=== PATIENT | female | born 1995 | race Caucasian/White ===

== ENCOUNTER 2024-12-01 10:47 | Emergency (ER) | payer MEDICAID, OTHER ==
[~2024-12-01] VITALS: Ht 165.1 cm; Wt 72.8 kg
[~2024-12-01 10:47] MED LIST: METH500T PO
[2024-12-01 11:19] LABS: URINE HCG NEGATIVE (NEG)
[2024-12-01 11:26] LABS: MEAN PLATELET VOLUME 7.6 FL (7.4-10.4); RED CELL DISTRIBUTION WIDTH 19.3 % (11.5-14.5)
[2024-12-01 11:38] LABS: PLATELET ESTIMATE NORMAL
[2024-12-01 11:40] LABS: ELLIPTOCYTES FEW; LARGE PLATELETS FEW
[2024-12-01 11:41] LABS: LEUKOCYTE ESTERASE ,URINE SMALL (Neg); NITRITES, URINE NEGATIVE (Neg); OCCULT BLOOD,URINE NEGATIVE (Neg)
[2024-12-01 11:42] LABS: UA COLLECTION TYPE CLN CATCH MIDSTREAM
[2024-12-01 11:44] LABS: CREATININE 0.55 MG/DL (0.40-0.90); TOTAL CARBON DIOXIDE 26.5 MMOL/L (24-32); eCRCL 133 ML/MIN; eGFR > 90 ML/MIN
[2024-12-01 11:53] LABS: MUCUS STRANDS FEW /LPF (Neg); SQUAMOUS EPITHELIAL CELL,UR MODERATE /LPF (FEW)
[2024-12-01 11:54] LABS: WBC CLUMPS,URINE FEW /HPF (NEGATIVE)
--- NOTE | 2024-12-01 11:54 | Physician Documentation ---
History of Present Illness General Chief Complaint: Urinary Retention Stated Complaint: KIDNEY PAIN Time Seen by MD: 11:51 OK to notify your PCP?: No Primary Medical Doctor: none Source: patient, RN notes reviewed Mode of Arrival: POV, Ambulatory Exam Limitations: no limitations History of Present Illness Initial Comments 29 year old female, with history of kidney stones once in the past, presents complaining of left flank pain for the last three weeks. Pain has mostly been intermittent but became constant over the last few days. Pain is now severe and is radiating to the left lower abdomen and wraps around the flank. She denies any vomiting. She did have a urinalysis at her regular doctor's office last week who told her she likely had a kidney stone, so she was started on Flomax; she did not have a urinary tract infection at the time. She denies any vomiting. Medication Reconciliation Allergies: Coded Allergies: adhesive tape (Verified Allergy, Intermediate, 12/01/24) Uncoded Allergies: AMOXICILLAN (Allergy, Unknown, 11/17/15) Scheduled Cephalexin*Monohydrate* (Keflex*), 2 CAP PO BID Methocarbamol (Robaxin), 1 TAB PO Q8H Scheduled PRN Hydrocodone Bit/Acetaminophen (Hydrocodon-Acetaminophn 10-325 tablet), 1 TABLET PO Q6H PRN for moderate or severe pain 4-10 ONDANSETRON ODT 4mg tablet (Ondansetron Odt), 1 TABLET PO Q6H PRN for nausea/vomiting Past Medical History Past Medical History: Kidney Stones Past Surgical History: no surgical history Smoking: Cigarettes Alcohol Use: Occasionally Drug Use: none Lives with: Family Lives In: Home Occupation: employed Review of Systems All Other Systems at this time: Reviewed and Negative ROS left flank pain as well as other positive symptoms as stated above in the HPI, otherwise all systems are reviewed and negative. Physical Exam Physical Exam Vital Signs: RN Vital Signs have been reviewed: Yes, Temperature: 97.8, Source: Oral, Heart Rate: 121, Respiratory Rate: 16, BP: 141/96, Pulse Oximetry: 98, Weight: 72.800 Pulse Oximetry Reflects: adequate oxygenation Physical Exam VITALS: Reviewed and as above. GENERAL: Alert, no apparent distress. HEENT: Normocephalic, atraumatic, PERRL, EOMI, dry mucosa RESPIRATORY: Lungs clear, normal breath sounds, no respiratory distress. CHEST: No accessory muscle use, no retractions CV: Regular rate, regular rhythm, no edema, no murmur, No: JVD GI: Slight left sided abdominal tenderness. Soft, bowels sounds present, no rebound, guarding, or rigidity BACK: No CVA tenderness, or swelling MUSCULOSKELETAL No deformities, no edema SKIN: Warm and dry, no rash NEURO: Oriented x4, No motor or sensory deficit PSYCH: Normal mood and affect, no agitation. Progress Progress Note 1350: Reevaluation: Pain is improved. comfortable with plan for discharge on a ntibiotics. Results/Orders Reviewed/noted all lab results: Yes Results/Orders Medications Received in ER Medications (Trade) Dose Ordered Sig/Rochelle Route PRN Reason Start Time Stop Time Status Last Admin Dose Admin (Toradol injection) 15 mg ONCE ONCE IV 12/01/24 12:30 12/01/24 12:31 DC 12/01/24 12:37 15 MG Ceftriaxone Sodium/Dextrose 50 ml @ 100 mls/hr ONCE ONCE IV 12/01/24 12:50 12/01/24 13:19 DC 12/01/24 13:09 100 MLS/HR Vital Signs 12/01/24 12/01/24 12/01/24 12/01/24 10:58 11:25 12:37 12:38 Temp 97.8 Pulse 121 96 Resp 22 16 20 20 B/P (MAP) 141/96 118/87 (97) Pulse Ox 98 99 12/01/24 13:46 Resp 16 Laboratory Tests Test 12/01/24 11:00 12/01/24 11:16 Urine Specimen Description Cln catch midstream Urine Color Straw Urine Clarity Slightly cloudy Urine pH 7.0 Urine Specific Superior <=1.005 Urine Protein Negative Urine Glucose (UA) Negative Urine Ketones Negative Urine Occult Blood Negative Urine Nitrite Negative Urine Bilirubin Negative Urine Urobilinogen 0.2 Urine Leukocyte Esterase Small H Urine RBC 0-2 Urine WBC 20-30 H Urine WBC Clumps Few Urine Squamous Epithelial Cells Moderate Urine Transitional Epithelial Cells Few Urine Bacteria 2+ Urine Mucus Few Urine Culture Indicated Indicated Volume Urine Centrifuged 10 ml Urine HCG, Qualitative Negative Urine Comment White Blood Count 7.6 Red Blood Count 4.30 Hemoglobin 10.4 L Hematocrit 32.2 L Mean Corpuscular Volume 74.9 L Mean Corpuscular Hemoglobin 24.1 L Mean Corpuscular Hemoglobin Concent 32.2 L Red Cell Distribution Width 19.3 H Platelet Count 348 Mean Platelet Volume 7.6 Neutrophils (%) (Auto) 62.2 Lymphocytes (%) (Auto) 22.5 Monocytes (%) (Auto) 12.1 H Eosinophils (%) (Auto) 2.1 Basophils (%) (Auto) 1.1 H Neutrophils # (Auto) 4.7 Lymphocytes # (Auto) 1.7 Monocytes # (Auto) 0.9 Eosinophils # (Auto) 0.2 Basophils # (Auto) 0.1 CBC Comment Platelet Estimate Normal Large Platelets Few Red Blood Cell Morphology Perf Hypochromasia 1+ Basophilic Stippling Anisocytosis 2+ Microcytosis 1+ Tear Drop Cells Few Elliptocytes Few Sodium Level 136 Potassium Level 3.6 Chloride Level 103 Carbon Dioxide Level 26.5 Anion Gap 7 L Blood Urea Nitrogen 3 L Creatinine 0.55 Estimated GFR/1.73 m2 > 90 BUN/Creatinine Ratio 5.5 L Glucose Level 88 Calcium Level 8.8 Total Bilirubin 0.4 Aspartate Amino Transf (AST/SGOT) 23 Alanine Aminotransferase (ALT/SGPT) 25 Alkaline Phosphatase 71 Total Protein 7.5 Albumin 3.5 Globulin 4.0 Albumin/Globulin Ratio 0.9 L Lipase 182 H Procalcitonin 0.15 Chemistry Comments Microbiology Date/Time Source Procedure Growth Status 12/01/24 11:56 Urine Clean Catch Midstream Urine Culture - Preliminary Culture received. Resulted EKG/XRAY/CT/US/VASC/MRI CT : Interpreted By: radiologist CT: abdomen/pelvis With Contrast?: No Impression Exam: CT CT ABDOMEN PELVIS History: FLANK PAIN COMPARISON: None Technique: Multidetector spiral CT of the abdomen and pelvis was performed from lung bases to pubic symphysis. Intravenous contrast was administered during this examination. Portal venous imaging was obtained. Axial, coronal and sagittal multiplanar reformats were performed by the technologist on a separate workstation. Radiation Dose : 1. Abdomen/Pelvis: CTDIvol 17.5 mGy, DLP 833 mGy*cm. Findings: Lung Bases: No acute or significant lung base finding. Normal heart size. No pleural or pericardial effusion. Liver: Indeterminate hypoattenuating lesion in the right hepatic lobe, segment 6 measures 3.6 cm. Gallbladder and Biliary Tree: Unremarkable Spleen: Unremarkable Pancreas: The pancreas is normal in appearance without focal lesions or abnormal enhancement. Adrenal Glands: Unremarkable Kidneys: Right kidney is unremarkable. Moderate left hydroureteronephrosis. Possible punctate 0.1 cm stone in the distal left ureter. Bladder: Unremarkable Bowel: The stomach is grossly normal in appearance. Moderate volume colonic stool. The appendix is not visualized; however, no secondary findings of acute appendicitis identified. Ascites: Absent Lymphadenopathy: No mesenteric, retroperitoneal or periportal lymphadenopathy. Abdominal Wall and Mesentery: Unremarkable. Vasculature: The visualized abdominal aorta is normal in size and caliber. Abdominal and pelvic vessels demonstrate normal enhancement. Pelvic Organs: Unremarkable Musculoskeletal: No aggressive focal bony lesions, acute fractures or dislocation. IMPRESSION: Moderate left hydroureteronephrosis. Possible punctate 0.1 cm stone in the distal left ureter versus phleboliths. Moderate volume colonic stool. Indeterminate hypoattenuating lesion in the right hepatic lobe segment 6 measures 3.6 cm. This could be further evaluated with nonemergent CT or MRI liver mass protocol. Reviewed by myself. Medical Decision Making Additional info obtained from: old records (Last seen in 2016 for cervical strain) Departure Time of Disposition: 13:59 Disposition: HOME / SELF CARE / HOMELESS Impression: Primary Impression: Back pain Qualified Codes: M54.9 - Dorsalgia, unspecified Additional Impression: UTI (urinary tract infection) Qualified Codes: N39.0 - Urinary tract infection, site not specified Condition: Stable Discharge Instructions: Acute Back Pain, Adult, Urinary Tract Infection, Adult, [id number] Additional Instructions: Take full course of antibiotics as prescribed. Take [place]onier as needed for pain. Take Zofran as needed for nausea. Return to the ER for worsening pain, fever, vomiting, or other concerns. Prescriptions ONDANSETRON ODT 4mg tablet (ONDANSETRON ODT) 4 Mg Tab.rapdis 1 TABLET PO Q6H PRN for nausea/vomiting, #12 TABLET Prov: MARIO KING MD 12/01/24 Cephalexin*Monohydrate* (Keflex*) 500 Mg Capsule 2 CAP PO BID, #28 CAP Prov: MARIO KING MD 12/01/24 Hydrocodone Bit/Acetaminophen (Hydrocodon-Acetaminophn 10-325 tablet) 10mg- 325mg Tablet 1 TABLET PO Q6H PRN for moderate or severe pain 4-10, #12 TABLET Prov: MARIO KING MD 12/01/24 Education Educated: Patient Educated regarding: diagnosis, treatment, need for follow up Signature Scribe Signature: Scribed for Mario King MD by Jodi Addison . 12/01/24 12:47 MARIO KING MD Dec 01, 2024 11:54 JODI GUERIN Dec 01, 2024 12:52
[2024-12-01] MEDS: ketorolac trometh 15mg/ml vial 15 MG/ML ML IV ONE (12:37)
--- NOTE | 2024-12-01 12:40 | RADIOLOGY REPORT ---
Exam: CT CT ABDOMEN PELVIS History: FLANK PAIN COMPARISON: None Technique: Multidetector spiral CT of the abdomen and pelvis was performed from lung bases to pubic s ymphysis. Intravenous contrast was administered during this examination. Portal venous imaging was o btained. Axial, coronal and sagittal multiplanar reformats were performed by the technologist on a Slated workstation. Radiation Dose : 1. Abdomen/Pelvis: CTDIvol 17.5 mGy, DLP 833 mGy*cm. Findings: Lung Bases: No acute or significant lung base finding. Normal heart size. No pleural or pericardial effusion. Liver: Indeterminate hypoattenuating lesion in the right hepatic lobe, segment 6 measures 3.6 cm. Gallbladder and Biliary Tree: Unremarkable Spleen: Unremarkable Pancreas: The pancreas is normal in appearance without focal lesions or abnormal enhancement. Adrenal Glands: Unremarkable Kidneys: Right kidney is unremarkable. Moderate left hydroureteronephrosis. Possible punctate 0.1 cm stone in the distal left ureter. Bladder: Unremarkable Bowel: The stomach is grossly normal in appearance. Moderate volume colonic stool. The appendix is no t visualized; however, no secondary findings of acute appendicitis identified. Ascites: Absent Lymphadenopathy: No mesenteric, retroperitoneal or periportal lymphadenopathy. Abdominal Wall and Mesentery: Unremarkable. Vasculature: The visualized abdominal aorta is normal in size and caliber. Abdominal and pelvic vess els demonstrate normal enhancement. Pelvic Organs: Unremarkable Musculoskeletal: No aggressive focal bony lesions, acute fractures or dislocation. IMPRESSION: Moderate left hydroureteronephrosis. Possible punctate 0.1 cm stone in the distal left ureter versus phleboliths. Moderate volume colonic stool. Indeterminate hypoattenuating lesion in the right hepatic lobe segment 6 measures 3.6 cm. This could be further evaluated with nonemergent CT or MRI liver mass protocol.
[2024-12-01] MEDS: CefTRIAXone 2gm/D5W 50ml BAG 50 ML IV ONE (13:09)
[2024-12-01 13:30] VITALS: TEMP 97.8
[2024-12-01] MEDS ORDERED: CEPH-585 PO (13:59)
[2024-12-01] MEDS ORDERED: HYDR-3972 PO (13:59)
[2024-12-01] MEDS ORDERED: ONDA-243 PO (13:59)
[2024-12-01 14:14] VITALS: BP 115/80; PULSE 88; RESP 16; O2SAT 99
== END 2024-12-01 14:16 | disposition home or self-care (01) ==
LOC: ER 10:48
DX: N39.0 Urinary tract infection, site not specified (principal); M54.9 Dorsalgia, unspecified; F17.210 Nicotine dependence, cigarettes, uncomplicated; Z87.442 Personal history of urinary calculi; Z79.899 Other long term (current) drug therapy; Z72.89 Other problems related to lifestyle
CPT/HCPCS: 36415; 74176; 80053; 81001; 81025; 83690; 84145; 85008; 85025; 87088; 96365; 96375; 99285; J0696; J1885; J7030; 87077; 87186